=== PATIENT | male | born 1980 | race Caucasian/White ===

== ENCOUNTER 2023-06-12 10:10 | Emergency (ER) | payer OTHER ==
[~2023-06-12] VITALS: Ht 172.7 cm; Wt 86.2 kg
[2023-06-12 10:27] VITALS: TEMP 98.1
[2023-06-12] MEDS ORDERED: CLONIDINE HCL 0.1 MG TABLET PO ONE (10:30)
[2023-06-12] MEDS ORDERED: CLONIDINE HCL 0.1 MG TABLET ONE (10:35)
[2023-06-12 11:53] VITALS: BP 127/78; O2SAT 97
== END 2023-06-12 11:49 ==
LOC: ER 10:15
DX: I10 Essential (primary) hypertension (principal); R59.1 Generalized enlarged lymph nodes; Z20.822 Contact with and (suspected) exposure to COVID-19